=== PATIENT | male | born 1995 | race Caucasian/White ===

== ENCOUNTER → 2016-04-27 | Day surgery (SDC) | payer BC ==
[2016-04-21 11:29] VITALS: Ht 180.3 cm; Wt 106.8 kg
[~2016-04-27] VITALS: Ht 180.3 cm; Wt 106.8 kg
[~2016-04-27] MED LIST: ATROPINE SULFATE 0.1 MG/ML 5ML SYR IV PRN; BUPIVACAINE/EPINEPHRINE 0.25% 1:200,000 30 ML VIAL ONE; CEFAZOLIN 2000 MG/60 ML D5W IV SCH; DEXAMETHASONE SOD INJ 4 MG/ML VIAL IV PRN; DEXAMETHASONE SOD INJ 4 MG/ML VIAL ONE; EpHEDrine SULFATE INJ 50 MG/ML AMP IV PRN; EpINEphrine INJ 1MG/ML AMP 1 MG/ML AMP ONE; FENTANYL CITRATE INJ 50 MCG/1 ML 2 ML VIAL ONE; FLUMAZENIL 0.1 MG/1 ML 10 ML VIAL IV PRN; GLYCOPYRROLATE INJ 0.2 MG/ML VIAL ONE; KETO10TA PO; KETOROLAC TROMETHAMINE 30 MG/ML VIAL IV. PRN; LABETALOL HCL IV 5 MG/ML 20ML IV PRN; LACTATED RINGER'S 1000ML 1,000 ML IV SCH; LIDOCAINE HCL 1% MPF 2 ML VIAL ONE; LIDOCAINE HCL 2% 2 ML VIAL (20MG/ML) ONE; MEPERIDINE HCL 25 MG/ML CARP IV PRN; METOCLOPRAMIDE HCL INJ 5 MG/ML 2 ML VIAL IV PRN; MIDAZOLAM HCL 1 MG/ML 2ML VIAL ONE; MoRPHine SULFATE 10 MG/ML CARP/VIAL IV PRN; NALOXONE HCL 0.4 MG/1 ML VIAL/CARP IV PRN; NEOSTIGMINE METHYLSULFATE 5 MG/5 ML SYR ONE; ONDANSETRON INJ 2 MG/ML 2 ML VIAL IV PRN; ONDANSETRON INJ 2 MG/ML 2 ML VIAL ONE; OXYC-57 PO; OXYCODONE/ACETAMINOPHEN 5-325 TAB PO PRN; PHENYLEPHRINE 100MCG/ML 5ML SYR IV PRN; PROPOFOL IV EMULSION 10 MG/ML 20 ML VIAL IV ONE; ROCURONIUM BROMIDE 10 MG/ML 5 ML VIAL ONE; ROPIVACAINE 0.5% 5 MG/ML 30 ML VIAL ONE; SODIUM CHLORIDE 0.9% 1000ML 1,000 ML IV SCH
--- NOTE | 2016-04-27 06:41 | History & Physical Bridge - [place] ---
H&P Re-Evaluation Bridge Note: I have examined the patient, reviewed the History & Physical and in the interval since the performance of the History & Physical I have noted the following changes of clinical significance: No changes noted
--- NOTE | 2016-04-27 09:46 | [facility] Post Operative Brief Note ---
Immediate Operative Summary Operative Date Apr 27, 2016. Pre-Operative Diagnosis Right Labral Tear Post-Operative Diagnosis Same Procedure(s) Performed Right Shoulder Arthroscopy, Slap Repair, Labral Repair Surgeon Dr. Lilly Winter Inside Outside Sales Representative Surgeon(s) Sha Mcnally PA-C Estimated Blood Loss 2 cc Findings as scheduled Specimens None Complication(s) None Disposition Recovery Room / PACU
--- NOTE | 2016-04-27 09:53 | Discharge Instructions-SurgCtr ---
Discharge Instructions Visit Reason for Visit: Right Shoulder Joint Injury Superior Glenoid Labru Discharge Discharge Diagnosis / Problem: SAME ABOVE Discharge Goals Goal(s): Decrease discomfort, Improve function Activity Recommendations Activity Limitations: as noted below Lifting Limitations: until after follow-up appointment Exercise/Sports Limitations: until after follow-up appointment Shower/Bathe: tomorrow Anesthesia . Post Anesthesia Instructions: If you have had General Anesthesia or IV Sedation: * Do not drive today. * Resume driving when surgeon permits. * Do not make important decisions or sign legal documents today. * Call surgeon for: 1. Temperature elevations greater than 101 degrees F. 2. Uncontrollable pain. 3. Excessive bleeding. 4. Persistent nausea and vomiting. 5. Medication intolerance (nausea, vomiting or rash). * For nausea and vomiting use only clear liquids such as: tea, soda, bouillon until nausea subsides, then gradually increase diet as tolerated. * If you have any concerns or questions, call your surgeon's office. If physician is unavailable and it is an emergency, call 911 or go to the nearest emergency room. . Instructions / Follow-Up Instructions / Follow-Up MEDICATIONS: * Resume previous medications unless instructed otherwise by your surgeon. * Always take pain medication on a full stomach or with food to avoid upset stomach. * Do not drink alcohol or drive while taking narcotics. * Ibuprofen or Tylenol may be taken if narcotic not needed. SPECIAL CARE INSTRUCTIONS: __ None _X_ Keep extremity elevated and iced x 48 hours; apply ice 20-30 minutes 8-10 times/day. May remove at night. _X_ Sling (MAY REMOVE AFTER 24-48 HOURS ONLY TO SHOWER AND FOR THERAPY) _X_24 hrs/day __ Remove at night __ Shoulder Immobilizer __ 24 hrs/day __ Remove at night _X_ Dressing __ Maintain until seen in office, may shower with plastic over site _X_ Remove dressings in 24-48 hours and then may shower _X_ Cover incisions with band-aids after showering __ Do not remove steri-strips Call physician if chills or temperature rises above 102 degrees or pain unrelieved by prescribed pain medications at . . Diet Recommendations Home Diet: no limitations Fluid Restriction: None Procedures Procedures Performed: Right Shoulder Arthroscopy, Slap Repair, Labral Repair Pending Studies Studies pending at discharge: no Work Instructions Return To Work: after follow-up Lifting Limitations: NO LIFTING WITH RIGHT ARM Medical Emergencies . Who to Call and When: Medical Emergencies: If at any time you feel your situation is an emergency, please call 911 immediately. . Non-Emergent Contact Non-Emergency issues call your: Primary Care Provider Call Non-Emergent contact if: you have a fever, temperature is above 101.5 . . "Provider Documentation" section prepared by Srini Mcnally.
--- NOTE | 2016-04-27 09:58 | OPERATIVE REPORT ---
DATE OF OPERATION: 04/27/2016 PREOPERATIVE DIAGNOSIS: Superior labral tear of the right shoulder. POSTOPERATIVE DIAGNOSIS: Same. PROCEDURE: Right shoulder diagnostic arthroscopy with superior labral repair. SURGEON: Dr. Eddie Winter. ELECTRONICS UTILITY WORKER: Abundio Mcnally PA-C, whose assistance was necessary for positioning the arm and helping with instrumentation. ANESTHESIA: General with a right interscalene nerve block. COMPLICATIONS: None. CONDITION: Stable to PACU. INDICATIONS: Abundio is a pleasant 21-year-old male who presented to my office with instability of his right shoulder following football season. He had no dislocations, but he had several incidences of arm syndrome. MRI did show a superior labral tear and he elected to undergo arthroscopy. On 04/27/2016 he arrived at [facility] for the above procedure. He was seen in the preoperative holding area and the operative extremity was identified and signed. He was given a preoperative antibiotic, taken back to the operating room, laid on the table in a supine position and put under general anesthesia. He was then put into the lateral decubitus position. The right shoulder was prepped and draped in a sterile fashion. Time-out was done and the patient and operative extremity was properly identified. The arm was brought out to a 3 point distracter. A scope was placed in the posterior portal. Diagnostic arthroscopy showed no cartilage damage to the humeral head or the glenoid. There was a normal anterior sublabral foramen. The remainder of the anterior, inferior and most of the posterior labrum were intact. The biceps tendon was intact and went through a normal size biceps james mechanism. There was a tear of the labrum extending from the biceps anchor posteriorly about to the 9:30 position. A 7 mm cannula was placed both anterior and posteriorly. A 5 mm percutaneous cannula was placed through the supraspinatus. The labrum was then fixed with an Arthrex labral tape and 2.9 mm BioComposite PushLock suture anchors. Four anchors were used in total. One was placed at the 12 o'clock position just posterior to the biceps, one at the 11 o'clock, one at the 10 o'clock, and one at the 9 o'clock position. This gave an excellent repair of the labrum. Multiple pictures were taken. Arthroscopic instruments were removed from the shoulder. Portal sites were closed with 3-0 nylon. He was then placed in a soft dressing and regular arm sling. He was then extubated, transferred to a [facility] and taken to the postanesthesia care unit in stable condition. He tolerated the procedure well. I attest to the content of the Intraoperative Record and any orders documented therein. Any exceptio ns are noted below.
[2016-04-27 10:35] VITALS: TEMP 36.2
[2016-04-27 11:05] VITALS: BP 141/82; PULSE 64; O2SAT 96
--- NOTE | 2016-04-27 11:05 | Anesthesia Progress Nt - [facility] ---
Anesthesia Post Op Note Date & Time Apr 27, 2016 at 11:04 Vital Signs Pain Intensity: 0 Vital Signs Past 12 Hours Date Time Temp Pulse Resp B/P Pulse Ox O2 Delivery O2 Flow Rate FiO2 04/27/16 10:35 36.2 80 16 128/88 96 Room Air 04/27/16 10:29 66 2 95 04/27/16 10:29 65 2 04/27/16 10:28 36.5 66 12 120/65 96 Room Air 04/27/16 10:28 120/65 04/27/16 10:24 64 16 04/27/16 10:24 64 16 95 04/27/16 10:23 127/70 04/27/16 10:19 66 18 04/27/16 10:19 65 18 96 04/27/16 10:18 129/74 04/27/16 10:14 72 19 99 04/27/16 10:14 70 19 04/27/16 10:13 128/67 04/27/16 10:09 72 16 04/27/16 10:09 70 16 99 04/27/16 10:08 135/63 04/27/16 10:04 73 21 99 04/27/16 10:04 74 21 04/27/16 10:03 129/73 04/27/16 09:59 78 17 04/27/16 09:59 78 17 99 04/27/16 09:58 123/83 04/27/16 09:54 55 17 99 04/27/16 09:54 56 17 04/27/16 09:53 118/68 04/27/16 09:52 36.0 60 16 131/66 98 Mask 6 04/27/16 09:50 131/66 04/27/16 07:54 17 04/27/16 07:53 127/95 04/27/16 07:51 70 04/27/16 07:51 70 17 98 04/27/16 07:48 125/91 04/27/16 07:46 57 04/27/16 07:46 58 20 97 04/27/16 07:43 125/79 04/27/16 07:41 65 17 98 04/27/16 07:41 66 04/27/16 07:38 122/84 04/27/16 07:36 53 22 100 04/27/16 07:36 54 04/27/16 07:34 126/92 04/27/16 07:31 0 04/27/16 07:26 0 04/27/16 07:21 0 04/27/16 07:16 0 04/27/16 07:11 0 04/27/16 07:06 0 04/27/16 07:01 0 04/27/16 06:30 36.7 61 20 134/95 95 Room Air Notes Mental Status: alert / awake / arousable, participated in evaluation Pt Amnestic to Procedure: Yes Nausea / Vomiting: adequately controlled Pain: adequately controlled Airway Patency, RR, SpO2: stable & adequate BP & HR: stable & adequate Hydration State: stable & adequate Anesthetic Complications: no major complications apparent
== END | disposition home or self-care (01) ==
LOC: X.SURG 06:21
PROVIDERS: ATTEND Orthopaedic Surgery
DX: S43.431A Superior glenoid labrum lesion of right shoulder, initial encounter (principal); Y93.61 Activity, american tackle football; Y92.321 Football field as the place of occurrence of the external cause